=== PATIENT | female | born 2000 | race Caucasian/White ===

== ENCOUNTER 2021-01-13 15:35 | Emergency (ER) | payer OTHER ==
[~2021-01-13] VITALS: Ht 152.4 cm; Wt 81.8 kg
[2021-01-13] MEDS ORDERED: IV NORMAL SALINE 1000ML BAG 1,000 ML IV SCH (16:15)
--- NOTE | 2021-01-13 16:24 | PHYS DOC ---
Past Medical History Past Medical History: No Pertinent History (LUCY SANTACRUZ ELEMENTARY MATH TUTOR) Past Surgical History: No Surgical History (LUCY SANTACRUZ ELEMENTARY MATH TUTOR) Smoking Status: Current Every Day Smoker Additional Information: 6 CIGS/DAY AND VAPES INTERMITTENTLY Alcohol Use: Rarely (LUCY SANTACRUZ APRN) General Adult EDM: Chief Complaint: VAGINAL BLEEDING HPI: HPI: Patient is a 20 year old female who presents with had a IUD placed 2 months ago and ever since then has had sharp pain whenever she eats or drinks a sharp pain also comes in with movement. She states she does not have vaginal bleeding or notice a vaginal bleeding until she is up and starts moving around. She states it is red and thinner than her usual periods really. She is currently transitioning into being a male and is on testosterone. She states that the sharp pain was just down into her lower abdomen area but now it starting to move up into her upper abdomen area and to the right lower abdomen area also. She states the bumps in the car is making her worse. She is rating her pain a 7 out of 10. She states that she does not have any sexually transmitted disease concerns and that condoms are being used. (LUCY SANTACRUZ ELEMENTARY MATH TUTOR) Review of Systems: Review of Systems: Constitutional: Denies fever or chills. [] Eyes: Denies change in visual acuity. [] HENT: Denies nasal congestion or sore throat. [] Respiratory: Denies cough or shortness of breath. [] Cardiovascular: Denies chest pain or edema. [] GI: + abdominal pain, denies nausea, vomiting, bloody stools or diarrhea. [] : Denies dysuria. + Vaginal bleeding [] Musculoskeletal: Denies back pain or joint pain. [] Integument: Denies rash. [] Neurologic: Denies headache, focal weakness or sensory changes. [] Endocrine: Denies polyuria or polydipsia. [] Lymphatic: Denies swollen glands. [] Psychiatric: Denies depression or anxiety. [] (LUCY SANTACRUZ ELEMENTARY MATH TUTOR) Heart Score: C/O Chest Pain: No Risk Factors: Risk Factors: DM, Current or recent (<one month) smoker, HTN, HLP, family history of CAD, obesity. Risk Scores: Score 0 - 3: 2.5% MACE over next 6 weeks - Discharge Home Score 4 - 6: 20.3% MACE over next 6 weeks - Admit for Clinical Observation Score 7 - 10: 72.7% MACE over next 6 weeks - Early Invasive Strategies (LUCY SANTACRUZ APRN) Current Medications: Current Medications Medications (Trade) Dose Ordered Sig/Edmar Start Time Stop Time Status Last Admin Dose Admin Sodium Chloride 1,000 ml @ 1,000 mls/hr Q1H 01/13/21 16:15 01/13/21 17:14 (LUCY SANTACRUZ APRN) Allergies: Allergies: Allergies Coded Allergies Type Severity Reaction Last Updated Verified coconut Allergy Intermediate Swelling 01/13/21 Yes shellfish derived Allergy Intermediate 01/13/21 Yes (LUCY SANTACRUZ APRN) Physical Exam: PE: Constitutional: Well developed, well nourished, no acute distress, non-toxic appearance. [] HENT: Normocephalic, atraumatic, bilateral external ears normal, oropharynx moist, no oral exudates, nose normal. [] Eyes: PERRLA, EOMI, conjunctiva normal, no discharge. [] Neck: Normal range of motion, no tenderness, supple, no stridor. [] Cardiovascular:Heart rate regular rhythm, no murmur [] Lungs & Thorax: Bilateral breath sounds clear to auscultation [] Abdomen: Bowel sounds normal, soft, generalized tenderness, no masses, no pulsatile masses. [] Skin: Warm, dry, no erythema, no rash. [] Back: No tenderness, no CVA tenderness. [] Extremities: No tenderness, no cyanosis, no clubbing, ROM intact, no edema. [] Neurologic: Alert and oriented X 3, normal motor function, normal sensory function, no focal deficits noted. [] Psychologic: Affect normal, judgement normal, mood normal. [] (LUCY SANTACRUZ APRN) Current Patient Data: Vital Signs: Vital Signs Date Time Temp Pulse Resp B/P (MAP) Pulse Ox O2 Delivery O2 Flow Rate FiO2 01/13/21 16:03 99.0 102 18 132/88 (103) 97 Room Air 99.0 (LUCY SANTACRUZ APRN) EKG: EKG: [] (LUCY SANTACRUZ APRN) Radiology/Procedures: Radiology/Procedures: [] Impression: [facility] [address] [place] [address] IMAGING REPORT Signed PATIENT: KATIE GORMAN ACCOUNT: [id number] : 2000 LOCATION: ER AGE: 20 SEX: F EXAM STATUS: REG ER ORD. PHYSICIAN: LUCY SANTACRUZ APRN REASON: ABDOMEN AND PELVIC PAIN, VAGINAL BLEEDING PROCEDURE: CT ABD PELV W/ IV CONTRST ONLY PQRS Compliance Statement: One or more of the following individualized dose reduction techniques were utilized for this examination: 1. Automated exposure control 2. Adjustment of the mA and/or kV according to patient size 3. Use of iterative reconstruction technique CT ABDOMEN+PELVIS W Clinical Indication: ABDOMEN AND PELVIC PAIN, VAGINAL BLEEDING Comparison: None. Technique: Helical CT imaging of the abdomen and pelvis is performed after 75 cc of Omnipaque 300 IV contrast. Oral contrast not administered. Findings: The lung bases are clear. Cardiac size normal. The liver, gallbladder, spleen, pancreas, adrenal glands, abdominal aorta, and kidneys are normal. The stomach is unremarkable. Fat-containing umbilical hernia. There is no dilated small bowel. The appendix is normal. No abdominal adenopathy or free fluid. There is no colon wall thickening. There is IUD in the uterus. The ovaries are symmetric in size. Urinary bladder is normal. No pelvic free fluid is seen. No acute bone abnormality. IMPRESSION: No acute abdominal or pelvic abnormality. Electronically signed by: Nico Posadas MD (01/13/2021 5:35 PM) [facility] DICTATED and SIGNED BY: NICO POSADAS MD DATE: 01/13/21 [id number] [facility] [address] [place] [address] IMAGING REPORT Signed PATIENT: KATIE GORMAN ACCOUNT: [id number] : 2000 LOCATION: ER AGE: 20 SEX: F EXAM STATUS: REG ER ORD. PHYSICIAN: LUCY SANTACRUZ APRN REASON: pelvic pain, vaginal bleeding- PROCEDURE: TRANSVAGINAL US TRANSVAGINAL Clinical Indication: Reason: pelvic pain, vaginal bleeding- Comparison: None. TECHNIQUE: Real-time ultrasound imaging of the pelvis using transvaginal window is performed. Findings: Uterus measures 7.4 x 4.2 x 3.3 cm. IUD is in appropriate position. The endometrial stripe is normal measuring 4 mm. Normal blood flow is seen in the ovaries. Right ovary measures 3.5 x 2.5 x 2.4 cm. The left ovary measures 2 x 1.7 x 1.4 cm. No evidence of adnexal mass. No cul-de-sac free fluid is seen. IMPRESSION: 1. Uterus, endometrial stripe, and ovaries are normal. 2. IUD in appropriate position. Electronically signed by: Nico Posadas MD (01/13/2021 7:50 PM) [facility] DICTATED and SIGNED BY: NICO POSADAS MD DATE: 01/13/21 [id number] (LUCY SANTACRUZ ELEMENTARY MATH TUTOR) Course & Med Decision Making: Course & Med Decision Making Pertinent Labs and Imaging studies reviewed. (See chart for details) See HPI. Alert and oriented x4. Ambulatory with a steady gait. Skin pink warm and dry. Abdomen is soft but generalized tenderness. She is not guarding. She also states that anytime she goes to have try to have a bowel movement or urinate because she is having to push down the causes her more pain. Blood work is unremarkable. She does have a UTI. I have given her Rocephin IV. CT abdomen pelvis shows no acute findings. Ultrasound is ordered. Pelvic Exam: Approver present Abdomen: Generalized External Genitalia: Normal Skin Speculum: Normal vaginal mucosa, bloody cervical discharge, IUD wire seen Bimanual: No adnexal masses or tenderness, No CMT [] (LUCY SANTACRUZ ELEMENTARY MATH TUTOR) Dragon Disclaimer: Dragon Disclaimer: This electronic medical record was generated, in whole or in part, using a voice recognition dictation system. (LUCY SANTACRUZ ELEMENTARY MATH TUTOR) Departure Departure Impression: Primary Impression: Dysmenorrhea Additional Impressions: Pelvic pain UTI (urinary tract infection) Qualified Codes: N39.0 - Urinary tract infection, site not specified; R31.9 - Hematuria, unspecified Disposition: 01 HOME / SELF CARE / HOMELESS Condition: STABLE Referrals: PEGHEE,ROSA G Jr MD Patient Instructions: Dysmenorrhea, Urinary Tract Infection Additional Instructions: Follow-up with final inspection supervisor soon as possible. Take medication as prescribed and with food. Drink plenty of fluids. Take ibuprofen or Tylenol for your pain. Scripts Cephalexin (CEPHALEXIN) 500 Mg Capsule 1 CAP PO TID, #21 CAP Prov: LUCY SANTACRUZ APRN 01/13/21 Attending Signature Attending Signature I have reviewed the PA/PLATING AND POINT ASSEMBLY SUPERVISOR's note and plan of care. I was available for consultation as needed during the patient's visit in the emergency department. I agree with the clinical impression, plan, and disposition. (NAA GRAYSON DO) LUCY SANTACRUZ APRN January 13, 2021 16:24 NAA GRAYSON DO January 14, 2021 06:37
[2021-01-13 16:30] LABS: BILIRUBIN,URINE NEGATIVE (NEG); CLARITY,URINE CLOUDY; COLOR,URINE RED; NITRITE,URINE NEGATIVE (NEG); PH,URINE 7.5 (<5.0-8.0); PROTEIN,URINE 30 mg/dL (NEG-TRACE)
[2021-01-13 16:33] LABS: U PREG PATIENT NEGATIVE (NEG)
[2021-01-13 16:39] LABS: BASO # 0.1 x10^3/uL (0.0-0.2); BASO % 1 % (0-3); EOS # 0.2 x10^3/uL (0.0-0.7); EOS % 2 % (0-3); HEMATOCRIT 43.8 % (36.0-47.0); HEMOGLOBIN 14.7 g/dL (12.0-15.5); LYMPH # 2.3 x10^3/uL (1.0-4.8); LYMPH % 23 % (24-48); MEAN CORPUSCULAR HEMOGLOBIN 28 pg (25-35); MEAN CORPUSCULAR HGB CONC 34 g/dL (31-37); MEAN CORPUSCULAR VOLUME 83 fL (79-100); MONO # 0.6 x10^3/uL (0.0-1.1); MONO % 6 % (0-9); NEUT # 6.6 x10^3/uL (1.8-7.7); NEUT % 68 % (31-73); PLATELET COUNT 277 x10^3/uL (140-400); RED BLOOD COUNT 5.27 x10^6/uL (3.50-5.40); RED CELL DISTRIBUTION WIDTH 13.5 % (11.5-14.5); WHITE BLOOD COUNT 9.7 x10^3/uL (4.0-11.0)
[2021-01-13 16:54] LABS: CALCIUM 8.6 mg/dL (8.5-10.1); CREATININE 0.7 mg/dL (0.6-1.0); GFR 105.6; POTASSIUM 4.1 mmol/L (3.5-5.1)
[2021-01-13 16:55] LABS: AMORPHOUS SEDIMENT,UR PRESENT /HPF; BACTERIA,URINE FEW /HPF (0-FEW); RBC,URINE >40 /HPF (0-2)
[2021-01-13 16:59] LABS: ALBUMIN 3.8 g/dL (3.4-5.0); ALBUMIN/GLOBULIN RATIO 1.2 (1.0-1.7); TOTAL BILIRUBIN 0.1 mg/dL (0.2-1.0)
[2021-01-13] MEDS ORDERED: CONTRAST GIVEN. MC PRN (17:15)
[2021-01-13] MEDS ORDERED: IOHEXOL 300 MG/ML 100ML VIAL. IV ONE (17:15)
[2021-01-13] MEDS ORDERED: cefTRIAXone IV Push 1 GM VIAL. IVP ONE (17:30)
--- NOTE | 2021-01-13 17:37 | RAD ---
PQRS Compliance Statement: One or more of the following individualized dose reduction techniques were utilized for this examinat ion: 1. Automated exposure control 2. Adjustment of the mA and/or kV according to patient size 3. Use of iterative reconstruction technique CT ABDOMEN+PELVIS W Clinical Indication: ABDOMEN AND PELVIC PAIN, VAGINAL BLEEDING Comparison: None. Technique: Helical CT imaging of the abdomen and pelvis is performed after 75 cc of Omnipaque 300 IV contrast. Oral contrast not administered. Findings: The lung bases are clear. Cardiac size normal. The liver, gallbladder, spleen, pancreas, adrenal glands, abdominal aorta, and kidneys are normal. The stomach is unremarkable. Fat-containing umbilical hernia. There is no dilated small bowel. The ap pendix is normal. No abdominal adenopathy or free fluid. There is no colon wall thickening. There is IUD in the uterus. The ovaries are symmetric in size. Urinary bladder is normal. No pelvic free fluid is seen. No acute bone abnormality. IMPRESSION: No acute abdominal or pelvic abnormality. Electronically signed by: Nico Posadas MD (01/13/2021 5:35 PM) [facility]
--- NOTE | 2021-01-13 19:52 | RAD ---
US TRANSVAGINAL Clinical Indication: Reason: pelvic pain, vaginal bleeding- Comparison: None. TECHNIQUE: Real-time ultrasound imaging of the pelvis using transvaginal window is performed. Findings: Uterus measures 7.4 x 4.2 x 3.3 cm. IUD is in appropriate position. The endometrial stripe is normal measuring 4 mm. Normal blood flow is seen in the ovaries. Right ovary measures 3.5 x 2.5 x 2.4 cm. The left ovary sara sures 2 x 1.7 x 1.4 cm. No evidence of adnexal mass. No cul-de-sac free fluid is seen. IMPRESSION: 1. Uterus, endometrial stripe, and ovaries are normal. 2. IUD in appropriate position. Electronically signed by: Nico Posadas MD (01/13/2021 7:50 PM) [facility]
[2021-01-13] MEDS ORDERED: CEPH500C PO (20:03)
[2021-01-13 20:47] VITALS: BP 130/78
[2021-01-16 18:09] LABS: GC PROBE Negative (Negative)
== END 2021-01-13 20:50 | disposition home or self-care (01) ==
LOC: ER 15:35
DX: N39.0 Urinary tract infection, site not specified (principal); R31.9 Hematuria, unspecified; N94.6 Dysmenorrhea, unspecified; R10.2 Pelvic and perineal pain; F17.200 Nicotine dependence, unspecified, uncomplicated; Z91.013 Allergy to seafood; Z91.018 Allergy to other foods
CPT/HCPCS: 36415; 74177; 76830; 80053; 81001; 81025; 83690; 85025; 87086; 87491; 87591; 96361; 96374; 99285; J0696; J7030; Q0111; Q9967